=== PATIENT | male | born 1950 | race Caucasian/White ===

== ENCOUNTER 2017-11-11 07:27 | Inpatient (IN) | payer MEDICARE, OTHER ==
[~2017-11-11] VITALS: Ht 188 cm; Wt 113.4 kg
[2017-11-11] VITALS (9 sets, daily range): BP systolic 95–113; BP diastolic 54–70
--- NOTE | 2017-11-11 07:40 | NUR ---
A/OX4. LETHARGIC. SKINS PALE, WARM, MOIST. [id number] FROM HOME: SYNCOPE, LOWER GI BLEED, HYPOTENSION, NAUSEA. NEG. SOB.
--- NOTE | 2017-11-11 07:55 | NUR ---
SYSTOLIC BP AT 93
[2017-11-11] MEDS ORDERED: IV NS 0.9% 1,000 ML BAG IV ONE ×3 (08:00→10:00)
[2017-11-11 08:06] LABS: BASOPHILS % (AUTO) 0.1 % (0.0-2.0); EOSINOPHILS % (AUTO) 1.6 % (0.0-6.0); HEMATOCRIT 24 % (39-51); HEMOGLOBIN 7.7 g/dL (13.5-17.5); LYMPHOCYTES # (AUTO) 1.2 /CMM (0.8-4.8); LYMPHOCYTES % (AUTO) 15.8 % (20.0-44.0); MEAN CORPUSCULAR HEMOGLOBIN 29 PG (26.0-33.0); MEAN CORPUSCULAR HGB CONC 33 g/dl (31.0-36.0); MEAN CORPUSCULAR VOLUME 89 fL (80-96); MONOCYTES # (AUTO) 0.7 /CMM (0.1-1.30); MONOCYTES % (AUTO) 9.4 % (2.0-12.0); NEUTROPHILS # (AUTO) 5.6 /CMM (1.8-8.9); NEUTROPHILS % (AUTO) 73.1 % (43.0-81.0); PLATELET COUNT (AUTO) 211 /CMM (150-450); RDW COEFFICIENT OF VARIATION 15.4 (11.5-15.0); RED BLOOD CELL COUNT(AUTO) 2.67 MIL/uL (4.5-6.0); WHITE BLOOD COUNT (AUTO) 7.7 K/uL (4.3-11.0)
[2017-11-11 08:13] LABS: CALCIUM, SERUM 7.5 mg/dL (8.5-10.1); CARBON DIOXIDE 16 mmol/L (21-32); CHLORIDE 112 mmol/L (98-107); CREATININE 2.4 mg/dL (0.6-1.3); GLUCOSE 262 mg/dL (74-106); POTASSIUM 4.8 mmol/L (3.5-5.1); SODIUM SERUM 141 mmol/L (136-145); UREA NITROGEN, BLOOD 56 mg/dL (7-18)
[2017-11-11 08:19] LABS: ALANINE AMINOTRANSFERASE 52 U/L (12-78); ALBUMIN 2.3 g/dL (3.4-5.0); ALKALINE PHOSPHATASE 63 U/L (46-116); ASPARTATE AMINOTRANSFERASE 30 U/L (15-37); BILIRUBIN,DIRECT 0.1 mg/dL (0.0-0.2); BILIRUBIN,TOTAL 0.4 mg/dL (0.2-1.0); LIPASE 75 U/L (73-393); TOTAL PROTEIN, SERUM 4.6 g/dL (6.4-8.2)
[2017-11-11 08:20] LABS: INR 1.05 (0.87-1.13)
[2017-11-11 08:21] LABS: TROPONIN I < 0.017 ng/mL (0.00-0.056)
--- NOTE | 2017-11-11 08:28 | NUR ---
[facility] PAGED
[2017-11-11] MEDS ORDERED: CLOP75TA15 PO (08:37)
[2017-11-11] MEDS ORDERED: PRAV80TA21 PO (08:37)
[2017-11-11] MEDS ORDERED: PARI1CAP3 PO (08:37)
[2017-11-11] MEDS ORDERED: ROPI0.5T2 PO (08:37)
[2017-11-11] MEDS ORDERED: EZET10TA27 PO (08:37)
[2017-11-11] MEDS ORDERED: OMEG-15 PO (09:08)
[2017-11-11] MEDS ORDERED: MYCO500T PO (09:08)
[2017-11-11] MEDS ORDERED: GLUC15006 PO (09:08)
[2017-11-11] MEDS ORDERED: ERGO500014 PO (09:08)
[2017-11-11] MEDS ORDERED: ASPI-1169 PO (09:08)
[2017-11-11] MEDS ORDERED: MAGN500C16 PO (09:08)
[2017-11-11] MEDS ORDERED: CHOL100044 PO (09:08)
[2017-11-11] MEDS ORDERED: MULT-24 PO (09:08)
[2017-11-11] MEDS ORDERED: CALC-7 PO (09:08)
[2017-11-11] MEDS ORDERED: UBID100C13 PO (09:08)
--- NOTE | 2017-11-11 09:25 | NUR ---
PT SBP AT 67, PT GIVEN ADDITIONAL 1L NS PER VERBAL ORDERS BY MD ANGULO. SBP RAISED TO 97.
--- NOTE | 2017-11-11 09:34 | NUR ---
BP 98/64 AT THIS TIME WITH 1L BOLUS INFUSING.
--- NOTE | 2017-11-11 10:04 | NUR ---
PT TRANSFERRED TO [facility] VIA ACLS PROTOCOL
--- NOTE | 2017-11-11 10:15 | NUR ---
RN NOTE RECEIVED REPORT FROM ANDI IN ER. RECEIVED PATIENT 67 YEAR OLD MALE BBRA FROM HOME FOR SYNCOPE, LOWER GI BLEED, HYPOTENSION, AND NAUSEA. PATIENT IS ALERT AND ORIENT X4, HE IS ABLE TO MAKE THINGS KNOWN AND VERBALIZE NEEDS. REORIENTED PATIENT TO ROOM AND CALL BUTTON. BREATHING EVEN AND UNLABORED WITH NO DISTRESS NOTED. PATIENT ON ROOM AIR SATURATING WELL. ON PUBLIC RELATIONS COUNSELOR SINUS RHYTHM HR OF 67. PATIENT NOTED WITH UROSTOMY BAG WITH ADEQUATE FLOW OF URINE. NO HEMATURIA NOTED. LEFT FOREARM GAUGE 22 IV SITE INTACT AND PATENT SALINE LOCK, AND RIGHT FOREARM GAUGE 22 IV SITE INTACT AND PATENT SALINE LOCK. WOUND PICTURES TAKEN AND DOCUMENTED IN CHART. ALL SAFETY MEASURES DONE. BED LOW AND LOCKED POSITION. PLACED CALL LIGHT WITHIN REACH. WILL CONTINUE TO MONITOR CLOSELY.
[2017-11-11] MEDS: HYDROCODONE/APAP 5/325MG 1 EACH TABLET PO PRN ×3 (12:52→22:39)
[2017-11-11] MEDS ORDERED: ACETAMINOPHEN 325 MG TABLET PO PRN (13:00)
[2017-11-11] MEDS ORDERED: ONDANSETRON HCL/PF 4 MG/2 ML VIAL IVP PRN (13:00)
[2017-11-11] MEDS ORDERED: ZOLPIDEM TARTRATE 5 MG TABLET PO PRN (13:00)
[2017-11-11 14:34] LABS: BASOPHILS % (AUTO) 0.2 % (0.0-2.0); EOSINOPHILS % (AUTO) 0.2 % (0.0-6.0); LYMPHOCYTES # (AUTO) 0.5 /CMM (0.8-4.8); LYMPHOCYTES % (AUTO) 8.3 % (20.0-44.0); MEAN CORPUSCULAR HEMOGLOBIN 30 PG (26.0-33.0); MEAN CORPUSCULAR HGB CONC 33 g/dl (31.0-36.0); MEAN CORPUSCULAR VOLUME 88 fL (80-96); MONOCYTES # (AUTO) 0.4 /CMM (0.1-1.30); MONOCYTES % (AUTO) 6.8 % (2.0-12.0); NEUTROPHILS # (AUTO) 5.5 /CMM (1.8-8.9); NEUTROPHILS % (AUTO) 84.5 % (43.0-81.0); PLATELET COUNT (AUTO) 188 /CMM (150-450); RDW COEFFICIENT OF VARIATION 15.9 (11.5-15.0); RED BLOOD CELL COUNT(AUTO) 2.16 MIL/uL (4.5-6.0); WHITE BLOOD COUNT (AUTO) 6.5 K/uL (4.3-11.0)
[2017-11-11 14:40] LABS: HEMATOCRIT 19 % (39-51); HEMOGLOBIN 6.4 g/dL (13.5-17.5)
--- NOTE | 2017-11-11 14:50 | NUR ---
RN NOTE SUCRUSS FROM LABORATORY CALLED TO NOTIFY CRITICAL LAB OF HEMOGLOBIN OF 6.4. MD DR ANGULO NOTIFIED. WITH ORDER TO TRANSFUSE 1 UNIT PRBC
--- NOTE | 2017-11-11 14:55 | NUR ---
RN NOTE BLOOD CONSENT SIGNED FROM PATIENT'S SON ROMANA.
--- NOTE | 2017-11-11 15:15 | NUR ---
RN NOTE STARTED BLOOD TRANSFUSION, PATIENT IS IN STABLE CONDITION. NO DISTRESS NOTED. WILL CONTINUE TO MONITOR TRANSFUSION REACTIONS AND VITAL SIGNS.
--- NOTE | 2017-11-11 16:15 | NUR ---
RN NOTE PATIENT REMAINS STABLE WITH NO REACTIONS OR DISTRESS DURING TRANSFUSION, WILL CONTINUE TO MONITOR.
[2017-11-11] MEDS ORDERED: Medication Not On Formulary EA (Glucosamine Hcl 1,500 MG) PO SCH (17:00)
[2017-11-11] MEDS: CALCIUM CARB 250MG /VITAMIN D 1 UDTAB PO SCH (17:32)
[2017-11-11] MEDS: MYCOPHENOLATE MOFETIL 250 MG CAPSULE PO SCH (17:32)
[2017-11-11] MEDS: ATORVASTATIN 40 MG TABLET PO SCH (17:32)
--- NOTE | 2017-11-11 18:20 | NUR ---
RN NOTE TRANSFUSION COMPLETE. PATIENT REMAINS STABLE WITH NO DISTRESS NOTED. VITAL SIGN ARE STABLE.
--- NOTE | 2017-11-11 19:28 | NUR ---
RN NOTE PATIENT REMAINED STABLE THROUGHOUT SHIFT. NO ACUTE CHANGES OR DISTRESS NOTED. WILL ENDORSE TO NEXT SHIFT TO CONTINUE CONTINUITY OF CARE.
--- NOTE | 2017-11-11 19:30 | NUR ---
[facility] RN INITIAL NOTE PT IN BED, A/O X4 AND ABLE TO VERBALIZE NEEDS. ON ROOM AIR AND SATURATING WELL. IV CLEAN, PATENT AND FLUSHING WELL. UROSTOMY IN PLACE AND DRAINING BY GRAVITY. C/O BACK PAIN AND AWAITING X-RAY OF THE SPINE. CALL LIGHT WITHIN REACH. WILL CONTINUE TO MONITOR.
[2017-11-11 22:15] LABS: BASOPHILS % (AUTO) 0.3 % (0.0-2.0); EOSINOPHILS % (AUTO) 2.1 % (0.0-6.0); HEMATOCRIT 22 % (39-51); HEMOGLOBIN 7.2 g/dL (13.5-17.5); LYMPHOCYTES # (AUTO) 0.7 /CMM (0.8-4.8); LYMPHOCYTES % (AUTO) 10.1 % (20.0-44.0); MEAN CORPUSCULAR HEMOGLOBIN 29 PG (26.0-33.0); MEAN CORPUSCULAR HGB CONC 33 g/dl (31.0-36.0); MEAN CORPUSCULAR VOLUME 90 fL (80-96); MONOCYTES # (AUTO) 0.6 /CMM (0.1-1.30); MONOCYTES % (AUTO) 8.7 % (2.0-12.0); NEUTROPHILS # (AUTO) 5.5 /CMM (1.8-8.9); NEUTROPHILS % (AUTO) 78.8 % (43.0-81.0); PLATELET COUNT (AUTO) 184 /CMM (150-450); RDW COEFFICIENT OF VARIATION 15.5 (11.5-15.0); RED BLOOD CELL COUNT(AUTO) 2.47 MIL/uL (4.5-6.0)
[2017-11-11 22:17] LABS: OCCULT BLOOD STOOL POSITIVE (NEGATIVE)
[2017-11-12] VITALS (14 sets, daily range): BP systolic 93–120; BP diastolic 47–64
[2017-11-12] MEDS: HYDROCODONE/APAP 5/325MG 1 EACH TABLET PO PRN ×2 (06:26→17:37)
[2017-11-12 06:35] LABS: BASOPHILS % (AUTO) 0.3 % (0.0-2.0); EOSINOPHILS % (AUTO) 1.6 % (0.0-6.0); HEMATOCRIT 21 % (39-51); LYMPHOCYTES # (AUTO) 0.6 /CMM (0.8-4.8); MEAN CORPUSCULAR HEMOGLOBIN 30 PG (26.0-33.0); MEAN CORPUSCULAR HGB CONC 33 g/dl (31.0-36.0); MEAN CORPUSCULAR VOLUME 89 fL (80-96); MONOCYTES # (AUTO) 0.6 /CMM (0.1-1.30); MONOCYTES % (AUTO) 7.5 % (2.0-12.0); NEUTROPHILS # (AUTO) 6.1 /CMM (1.8-8.9); NEUTROPHILS % (AUTO) 82.6 % (43.0-81.0); PLATELET COUNT (AUTO) 184 /CMM (150-450); RDW COEFFICIENT OF VARIATION 15.6 (11.5-15.0); RED BLOOD CELL COUNT(AUTO) 2.33 MIL/uL (4.5-6.0); WHITE BLOOD COUNT (AUTO) 7.3 K/uL (4.3-11.0)
[2017-11-12 06:39] LABS: CALCIUM, SERUM 7.8 mg/dL (8.5-10.1); CREATININE 2.3 mg/dL (0.6-1.3); MAGNESIUM 1.9 mg/dL (1.8-2.4); PHOSPHORUS 2.8 mg/dL (2.5-4.9); POTASSIUM 5.1 mmol/L (3.5-5.1)
[2017-11-12 06:46] LABS: HEMOGLOBIN 6.9 g/dL (13.5-17.5)
--- NOTE | 2017-11-12 07:01 | NUR ---
[facility] RN CLOSING NOTE PT REMAINED STABLE DURING SHIFT. NO ACUTE DISTRESS NOTED. BACK PAIN MANAGED WITH PAIN MEDICATION AND SIPS OF WATER. REMAINS NPO EXCEPT MEDS. HAD SEVERAL BLOODY BOWEL MOVEMENTS. KEPT CLEAN AND DRY. GOOD ADINA CARE PROVIDED. ALL NEEDS ATTENDED TO PROMPTLY. RECEIVED CRITICAL VALUE FROM LAB: H/H-6.02/11. SPOKE WITH NUCLEAR DESIGN ENGINEER NORI LEIGH BULK DRIVER WITH ORDERS TO GIVE 1 UNIT AND RECHECK CBC 1 HOUR AFTER TRANSFUSION COMPLETE. WILL ENDORSE TO NEXT SHIFT FOR CONTINUITY OF CARE.
[2017-11-12] MEDS: MYCOPHENOLATE MOFETIL 250 MG CAPSULE PO SCH ×2 (08:31→17:07)
[2017-11-12] MEDS: EZETIMIBE 10 MG TABLET PO SCH (08:31)
[2017-11-12] MEDS: CALCIUM CARB 250MG /VITAMIN D 1 UDTAB PO SCH ×2 (08:31→17:07)
[2017-11-12] MEDS: ropiniROLE 0.5 MG TABLET PO SCH (08:31)
[2017-11-12] MEDS: CHOLECALCIFEROL 1,000 UNIT TABLET (VIT D3) PO SCH (08:31)
[2017-11-12] MEDS: MULTIVITAMINS,THERAGRAN 1 UDTAB TABLET PO SCH (08:32)
[2017-11-12] MEDS: MAGNESIUM OXIDE 400 MG TABLET PO SCH (08:32)
[2017-11-12 08:36] LABS: EOSINOPHILS % (MANUAL) 2 % (0-4); LYMPHOCYTES % (MANUAL) 5 % (16-48); MONOCYTES % (MANUAL) 5 % (0-11.0); NEUTROPHILS % (MANUAL) 88 (42-76)
[2017-11-12] MEDS ORDERED: Medication Not On Formulary EA (Ubidecarenone (Coq-10) 200 MG) PO SCH (09:00)
[2017-11-12] MEDS ORDERED: Medication Not On Formulary EA (Omega-3/Dha/Epa/Fish Oil (Fish Oil 1,400 Mg Softgel) 1 E PO SCH (09:00)
--- NOTE | 2017-11-12 11:28 | NUR ---
RN NOTE PT RECEIVED 1 UNIT PRBC, TOLERATED WELL, NO TRANSFUSION REACTION NOTED.
[2017-11-12] MEDS ORDERED: EPOETIN ALFA (20,000 UNIT) 20,000 UNIT/ML VIAL SQ ONE (12:30)
[2017-11-12 14:48] LABS: HEMOGLOBIN 7.3 g/dL (13.5-17.5)
[2017-11-12] MEDS: ATORVASTATIN 40 MG TABLET PO SCH (17:07)
[2017-11-12] MEDS ORDERED: Z GUARD REMEDY 2 OZ OINT TP PRN (17:30)
[2017-11-12 19:52] LABS: HEMOGLOBIN 6.9 g/dL (13.5-17.5)
[2017-11-12] MEDS ORDERED: IV NS 0.9% 1,000 ML BAG IV PRN (22:30)
[2017-11-13] VITALS (7 sets, daily range): BP systolic 99–125; BP diastolic 52–67
--- NOTE | 2017-11-13 00:14 | NUR ---
TEST DESK SUPERVISOR NOTE CRITICAL LAB HGB 6.9. SPOKE WITH IRRIGATION PUMP INSTALLER NORI LEIGH BRUSH AND BROOM CLIPPER WITH ORDERS TO GIVE 1 UNIT PRBC'S AND RECHECK CBC AFTER TRANSFUSION. SPOKE WITH DR REBOLLAR AND HE SAID OK TO TRANSFUSE 1 UNIT NOW AND START ON IVF NS @75MLS/HR. ORDERS NOTED AND CARRIED OUT. WILL CONTINUE TO MONITOR.
--- NOTE | 2017-11-13 01:50 | NUR ---
RN NOTES PATIENT COMPLAINING OF PAIN. ONLY PRN MED FOR PAIN IS [facility]; CURRENTLY NPO. NORI LEIGH, LEXX NOTIFIED WITH ORDER CARRIED OUT. PRIMARY RN, SARAHI NOTIFIED
[2017-11-13] MEDS ORDERED: MORPHINE SULFATE INJ 2 MG/ML DISP.SYRIN IV ONE (02:00)
[2017-11-13] MEDS ORDERED: MORPHINE SULFATE INJ 4 MG/ML DISP.SYRIN ONE (02:21)
[2017-11-13 06:27] LABS: BASOPHILS % (AUTO) 0.4 % (0.0-2.0); EOSINOPHILS % (AUTO) 3.2 % (0.0-6.0); HEMATOCRIT 24 % (39-51); LYMPHOCYTES # (AUTO) 0.6 /CMM (0.8-4.8); LYMPHOCYTES % (AUTO) 9.2 % (20.0-44.0); MEAN CORPUSCULAR HEMOGLOBIN 29 PG (26.0-33.0); MEAN CORPUSCULAR HGB CONC 33 g/dl (31.0-36.0); MEAN CORPUSCULAR VOLUME 87 fL (80-96); MONOCYTES # (AUTO) 0.6 /CMM (0.1-1.30); MONOCYTES % (AUTO) 8.5 % (2.0-12.0); NEUTROPHILS # (AUTO) 5.2 /CMM (1.8-8.9); NEUTROPHILS % (AUTO) 78.7 % (43.0-81.0); PLATELET COUNT (AUTO) 169 /CMM (150-450); RDW COEFFICIENT OF VARIATION 15.5 (11.5-15.0); RED BLOOD CELL COUNT(AUTO) 2.76 MIL/uL (4.5-6.0); WHITE BLOOD COUNT (AUTO) 6.6 K/uL (4.3-11.0)
[2017-11-13 06:59] LABS: CALCIUM, SERUM 8.5 mg/dL (8.5-10.1); CREATININE 2.2 mg/dL (0.6-1.3); POTASSIUM 4.8 mmol/L (3.5-5.1)
[2017-11-13] MEDS ORDERED: ANESTHESIA TRAY IN PYXIS 1 EA TRAY MC ONE (08:58)
[2017-11-13] MEDS: EZETIMIBE 10 MG TABLET PO SCH (10:22)
[2017-11-13] MEDS: MYCOPHENOLATE MOFETIL 250 MG CAPSULE PO SCH ×2 (10:22→17:16)
[2017-11-13] MEDS: CHOLECALCIFEROL 1,000 UNIT TABLET (VIT D3) PO SCH (10:22)
[2017-11-13] MEDS: ropiniROLE 0.5 MG TABLET PO SCH (10:22)
[2017-11-13] MEDS: MULTIVITAMINS,THERAGRAN 1 UDTAB TABLET PO SCH (10:23)
[2017-11-13] MEDS: CALCIUM CARB 250MG /VITAMIN D 1 UDTAB PO SCH ×2 (10:23→17:16)
[2017-11-13] MEDS: MAGNESIUM OXIDE 400 MG TABLET PO SCH (10:23)
[2017-11-13] MEDS: IV NS 0.9% 1,000 ML IV PRN (11:55)
[2017-11-13] MEDS: SUCRALFATE 1 G/10 ML UDC PO SCH ×3 (11:55→22:11)
[2017-11-13] MEDS: PARICALCITOL 1 MCG PO SCH (13:52)
[2017-11-13] MEDS: ATORVASTATIN 40 MG TABLET PO SCH (17:16)
[2017-11-13] MEDS: HYDROCODONE/APAP 5/325MG 1 EACH TABLET PO PRN ×2 (17:20→23:21)
--- NOTE | 2017-11-13 19:25 | NUR ---
RN OPENING NOTES RECEIVED PT IN BED, IN NO ACUTE DISTRESS, DENIES PAIN, NO SOB AND BREATHING EVEN AND UNLABORED. IVF INFUSING WELL ORDERED. ALL PATIENT'S NEEDS ATTENDED TO AT THIS TIME. PLACED CALL LIGHT WITHIN EASY REACH. WILL CONTINUE TO MONITOR PT.
--- NOTE | 2017-11-13 19:30 | NUR ---
RN NOTES PT ON TELE MONITORING: SINUS RHYTHM @ 70s.
[2017-11-13 21:19] LABS: HEMOGLOBIN 7.2 g/dL (13.5-17.5)
--- NOTE | 2017-11-13 23:10 | NUR ---
RN NOTES RELAYED PT'S HGA1C AND BLOOD GLUCOSE LEVELS TO LEXX LEIGH WITH NEW ORDER TO START PATIENT ON MILD INSULIN SLIDING SCALE ACHS. ALL ORDERS NOTED AND CARRIED OUT.
[2017-11-13] MEDS ORDERED: DEXTROSE 50%-WATER 50 ML DISP.SYRIN IV PRN (23:30)
[2017-11-14] VITALS (7 sets, daily range): BP systolic 94–134; BP diastolic 58–70
[2017-11-14] MEDS: IV NS 0.9% 1,000 ML IV PRN ×2 (01:26→15:17)
--- NOTE | 2017-11-14 03:56 | NUR ---
RN NOTES PT NOTED WITH NO EPISODE OF NAUSEA/VOMITING. RECEIVED ORDER TO D/C CURRENT DIET AND CHANGE TO PUREED DIET. WILL CONTINUE TO MONITOR PT.
--- NOTE | 2017-11-14 06:34 | NUR ---
VISOR INSTALLER CLOSING NOTES RESIDENT IN BED, ASLEEP BUT EASILY AROUSABLE. ALERT AND ORIENTED X 4, NO SOB, BREATHING EVEN AND UNLABORED, SLEPT WELL DURING THE SHIFT. PT NOTED WITH 1 EPISODE OF SMALL BM WITH FRESH BLOOD. PT DENIES ABDOMINAL PAIN, WITH NO DIZZINESS OR LIGHT HEADEDNESS. VERBALLY RESPONSIVE AND ABLE TO MAKE NEEDS KNOWN. ALL PATIENT'S NEEDS ATTENDED TO THROUGHOUT THE SHIFT. ON TELE MONITORING WITH ST @ 60s - 70S. IVF NS @75ML/HR, INFUSING WELL. PLACED CALL LIGHT WITHIN EASY REACH. BED IN LOW POSiTION AND LOCKED IN PLACE. WILL ENDORSE TO AM SHIFT NURSE FOR CONTINUITY OF CARE.
[2017-11-14] MEDS: SUCRALFATE 1 G/10 ML UDC PO SCH ×4 (06:41→21:06)
[2017-11-14 07:03] LABS: BASOPHILS % (AUTO) 0.5 % (0.0-2.0); EOSINOPHILS % (AUTO) 4.3 % (0.0-6.0); HEMATOCRIT 22 % (39-51); HEMOGLOBIN 7.3 g/dL (13.5-17.5); LYMPHOCYTES # (AUTO) 0.6 /CMM (0.8-4.8); LYMPHOCYTES % (AUTO) 10.8 % (20.0-44.0); MEAN CORPUSCULAR HEMOGLOBIN 29 PG (26.0-33.0); MEAN CORPUSCULAR HGB CONC 34 g/dl (31.0-36.0); MEAN CORPUSCULAR VOLUME 87 fL (80-96); MONOCYTES # (AUTO) 0.5 /CMM (0.1-1.30); MONOCYTES % (AUTO) 10.7 % (2.0-12.0); NEUTROPHILS # (AUTO) 3.8 /CMM (1.8-8.9); NEUTROPHILS % (AUTO) 73.7 % (43.0-81.0); PLATELET COUNT (AUTO) 181 /CMM (150-450); RDW COEFFICIENT OF VARIATION 15.2 (11.5-15.0); WHITE BLOOD COUNT (AUTO) 5.1 K/uL (4.3-11.0)
--- NOTE | 2017-11-14 07:12 | NUR ---
RN INITIAL NOTES: REC'D PT AWAKE ON BED, A/O X 4, NOT IN ANY DISTRESS. ON ROOM AIR, NO SOB. ON TELEMONITOR, SR W/ HR 78 BPM. HAS UROSTOMY INTACT, DRAINING W/ YELLOWISH URINE OUTPUT. HAS RFA G18, PATENT & INTACT W/ NO S/SX OF INFECTION/INFILTRATION NOTED, W/ NS X 75 CC/HR INFUSING WELL. PROVIDED COMFORT & SAFETY ENVIRONMENT. BED KEPT LOW & IN LOCKED POS. CALL LIGHT PLACED W/IN REACH. WILL CONTINUE TO MONITOR & ATTEND PT NEEDS.
[2017-11-14] MEDS: BLOOD SUGAR DIAGNOSTIC 1 EACH STRIP IN SCH ×4 (07:46→22:04)
[2017-11-14] MEDS: INSULIN REGULAR, HUMAN 100 UNIT/ML 3 ML VIAL SQ PRN ×4 (07:48→21:05)
[2017-11-14] MEDS: ropiniROLE 0.5 MG TABLET PO SCH (08:46)
[2017-11-14] MEDS: CALCIUM CARB 250MG /VITAMIN D 1 UDTAB PO SCH ×2 (08:46→17:08)
[2017-11-14] MEDS: EZETIMIBE 10 MG TABLET PO SCH (08:46)
[2017-11-14] MEDS: MAGNESIUM OXIDE 400 MG TABLET PO SCH (08:47)
[2017-11-14] MEDS: MULTIVITAMINS,THERAGRAN 1 UDTAB TABLET PO SCH (08:47)
[2017-11-14] MEDS: PARICALCITOL 1 MCG PO SCH (08:47)
[2017-11-14] MEDS: CHOLECALCIFEROL 1,000 UNIT TABLET (VIT D3) PO SCH (08:47)
[2017-11-14] MEDS: MYCOPHENOLATE MOFETIL 250 MG CAPSULE PO SCH ×2 (08:47→17:08)
[2017-11-14] MEDS: ATORVASTATIN 40 MG TABLET PO SCH (17:08)
--- NOTE | 2017-11-14 18:33 | NUR ---
RN INITIAL NOTES: NO ACUTE CHANGES NOTED W/IN SHIFT. PT TOLERATED ROOM AIR, NO SOB. ON TELEMONITOR, STILL SR. UROSTOMY KEPT PATENT & INTACT, DRAINING W/ YELLOWISH URINE OUTPUT. RFA G18, KEPT PATENT & INTACT W/ NO S/SX OF INFECTION/INFILTRATION NOTED, W/ NS X 75 CC/HR INFUSING WELL. BM STILL NOTED +BLOODY STOOL. KEPT WELL RESTED. NEEDS ATTENDED. BED KEPT LOW & IN LOCKED POS. CALL LIGHT PLACED W/IN REACH. WILL ENDORSE TO PM RN FOR KAL.
--- NOTE | 2017-11-14 19:30 | NUR ---
CAT HOOKER INITIAL NOTES, RECEIVED PT AWAKE ON BED, A/O X 4, BREATHING EVEN AND UNLABORED, S/S OR C/O SOB OR ANY DISTRESS, ON ROOM AIR, SR TELEMONITOR, ON 70'S BPM, UROSTOMY BAG NOTED INTACT, DRAINING YELLOW URINE, RFA G18, PATENT & INTACT NO S/S OF INFILTRATION NOTED, NS @ 75 CC/HR INFUSING WELL AND PATIENT TOLERATED WELL, . ALL NEEDS ATTENDED, BED LOCKED AND IN LOWEST POSITION, CALL LIGHT PLACED W/IN REACH. WILL CONTINUE TO MONITOR CLOSELY.
[2017-11-14 20:30] LABS: HEMOGLOBIN 7.2 g/dL (13.5-17.5)
[2017-11-15] VITALS: BP 116/64
[2017-11-15] MEDS: HYDROCODONE/APAP 5/325MG 1 EACH TABLET PO PRN (02:33)
[2017-11-15 04:00] VITALS: BP 108/64
[2017-11-15 04:35] VITALS: BP 108/64
[2017-11-15] MEDS: IV NS 0.9% 1,000 ML IV PRN (05:15)
[2017-11-15 06:11] LABS: BASOPHILS % (AUTO) 0.4 % (0.0-2.0); HEMATOCRIT 24 % (39-51); HEMOGLOBIN 7.9 g/dL (13.5-17.5); LYMPHOCYTES # (AUTO) 0.6 /CMM (0.8-4.8); LYMPHOCYTES % (AUTO) 10.5 % (20.0-44.0); MEAN CORPUSCULAR HEMOGLOBIN 29 PG (26.0-33.0); MEAN CORPUSCULAR HGB CONC 33 g/dl (31.0-36.0); MEAN CORPUSCULAR VOLUME 88 fL (80-96); MONOCYTES # (AUTO) 0.5 /CMM (0.1-1.30); MONOCYTES % (AUTO) 8.8 % (2.0-12.0); NEUTROPHILS # (AUTO) 4.5 /CMM (1.8-8.9); NEUTROPHILS % (AUTO) 77.3 % (43.0-81.0); PLATELET COUNT (AUTO) 209 /CMM (150-450); RDW COEFFICIENT OF VARIATION 15.3 (11.5-15.0); WHITE BLOOD COUNT (AUTO) 5.8 K/uL (4.3-11.0)
[2017-11-15 06:36] LABS: CALCIUM, SERUM 8.7 mg/dL (8.5-10.1); CREATININE 2.3 mg/dL (0.6-1.3); POTASSIUM 4.4 mmol/L (3.5-5.1)
--- NOTE | 2017-11-15 06:45 | NUR ---
REFRIGERATOR ROOM CLERK CLOSING NOTES, PATIENT SLEEPING AT THIS TIME, BREATHING EVEN AND UNLABORED, S/S OR C/O SOB OR ANY DISTRESS, ON ROOM AIR, SR TELEMONITOR HIGH 70S, UROSTOMY BAG NOTED INTACT, DRAINING YELLOW URINE, RFA G18, PATENT & INTACT NO S/S OF INFILTRATION NOTED, NS @ 75 CC/HR INFUSING WELL AND PATIENT TOLERATED WELL, NO SIGNIFICANT CHANGE IN CONDITION THROUGHOUT THE NIGHT, ALL NEEDS ATTENDED, BED LOCKED AND IN LOWEST POSITION, CALL LIGHT PLACED W/IN REACH.WILL ENDORSE CONTINUITY OF CARE TO ONCOMING NURSE.
--- NOTE | 2017-11-15 07:30 | NUR ---
OUTREACH ASSOCIATE INITIAL NOTES RECEIVED REPORT AND PT FROM PM NURSE, PT RESTING IN BED, NO ACUTE DISTRESS OR SOB, PT AWAKE, A&O X4 UZBEK SPEAKING, ON RA SAT ABOVE 94%, PT STATES 0/10 PAIN AT THIS TIME, ON TELE MON SR WITH HR 74, RT HAND IV SITE RUNNING NS @ 75 ML/HR NO INFILTRATION NOTED, UROSTOMY PRESENT DRAINING URINE, ALL SAFETY MEASURES INITIATED, BED LOW AND LOCKED, CALL LIGHT WITHIN REACH, SIDE RAILS X2, WILL CONTINUE TO MONITOR.
[2017-11-15 08:00] VITALS: BP 102/63
[2017-11-15] MEDS: BLOOD SUGAR DIAGNOSTIC 1 EACH STRIP IN SCH ×2 (08:35→11:54)
[2017-11-15] MEDS: CALCIUM CARB 250MG /VITAMIN D 1 UDTAB PO SCH (08:36)
[2017-11-15] MEDS: MULTIVITAMINS,THERAGRAN 1 UDTAB TABLET PO SCH (08:36)
[2017-11-15] MEDS: CHOLECALCIFEROL 1,000 UNIT TABLET (VIT D3) PO SCH (08:36)
[2017-11-15] MEDS: MAGNESIUM OXIDE 400 MG TABLET PO SCH (08:36)
[2017-11-15] MEDS: SUCRALFATE 1 G/10 ML UDC PO SCH ×2 (08:36→11:54)
[2017-11-15] MEDS: EZETIMIBE 10 MG TABLET PO SCH (08:36)
[2017-11-15] MEDS: PARICALCITOL 1 MCG PO SCH (08:37)
[2017-11-15] MEDS: MYCOPHENOLATE MOFETIL 250 MG CAPSULE PO SCH (08:37)
[2017-11-15] MEDS: ropiniROLE 0.5 MG TABLET PO SCH (08:37)
[2017-11-15 12:00] VITALS: BP 112/69
[2017-11-15] MEDS: INSULIN REGULAR, HUMAN 100 UNIT/ML 3 ML VIAL SQ PRN (12:02)
--- NOTE | 2017-11-15 14:02 | NUR ---
GRADUATE ADVISOR ENDING NOTES PTS DC PAPERWORK AND ORDER RECEIVED, SIGNED AND COMPLETED BY PT, ID BAND REMOVED, IV SITE REMOVED NO INFILTRATION OR REDNESS NOTED, EXIT CARE AND DC PAPERWORK DISCUSSED WITH PT AND GIVEN TO PT, NO PRESCRIPTION PROVIDED, PT WILL NEED TO FOLLOW UP WITH PCP, TELE BOX REMOVED, ALL DUE MEDS GIVEN, ALL NEEDS MEDS, PTS ESCORTED OUT ON WHEELCHAIR WITH SON, PTS PAPERWORK FAXED TO PTS PRIMARY NEPHRO MD AND PRIMARY MD.
[2017-11-21] MEDS ORDERED: ERGOCALCIFEROL (VITAMIN D 2) 50,000 UNIT CAPSULE PO SCH (09:00)
== END 2017-11-15 14:02 | disposition home or self-care (01) | DRG 383 ==
LOC: ER 07:29 → TELE-TD 09:58 → TELE1 11-12 09:34
PROVIDERS: ADMIT Family Medicine; ATTEND Family Medicine
PROC: 30233N1 Transfusion of Nonautologous Red Blood Cells into Peripheral Vein, Percutaneous Approach (ICD-10-PCS; principal; 2017-11-11)
PROC: 30233N1 Transfusion of Nonautologous Red Blood Cells into Peripheral Vein, Percutaneous Approach (ICD-10-PCS; 2017-11-11)
PROC: 0DJ08ZZ Inspection of Upper Intestinal Tract, Via Natural or Artificial Opening Endoscopic (ICD-10-PCS; 2017-11-13)
PROC: 0DJ08ZZ Inspection of Upper Intestinal Tract, Via Natural or Artificial Opening Endoscopic (ICD-10-PCS; 2017-11-13)
DX: K27.9 Peptic ulcer, site unspecified, unspecified as acute or chronic, without hemorrhage or perforation (principal); N17.0 Acute kidney failure with tubular necrosis; N18.6 End stage renal disease; E44.0 Moderate protein-calorie malnutrition; Z94.0 Kidney transplant status; I12.0 Hypertensive chronic kidney disease with stage 5 chronic kidney disease or end stage renal disease; E46 Unspecified protein-calorie malnutrition; I25.10 Atherosclerotic heart disease of native coronary artery without angina pectoris; Z98.84 Bariatric surgery status; Z95.5 Presence of coronary angioplasty implant and graft; Z95.1 Presence of aortocoronary bypass graft; Z88.1 Allergy status to other antibiotic agents; Z79.899 Other long term (current) drug therapy; Z91.041 Radiographic dye allergy status; Z79.01 Long term (current) use of anticoagulants; Z82.49 Family history of ischemic heart disease and other diseases of the circulatory system; Z79.82 Long term (current) use of aspirin; Z93.6 Other artificial openings of urinary tract status; E66.9 Obesity, unspecified; Z68.32 Body mass index [BMI] 32.0-32.9, adult; I35.2 Nonrheumatic aortic (valve) stenosis with insufficiency; E86.9 Volume depletion, unspecified; K20.9 Esophagitis, unspecified; E11.22 Type 2 diabetes mellitus with diabetic chronic kidney disease; D50.0 Iron deficiency anemia secondary to blood loss (chronic); K28.9 Gastrojejunal ulcer, unspecified as acute or chronic, without hemorrhage or perforation; E83.51 Hypocalcemia; E11.65 Type 2 diabetes mellitus with hyperglycemia
CPT/HCPCS: 36415; 71045-TC; 72100-TC; 80048-TC; 80061-TC; 80076-TC; 82272-TC; 82962-TC; 83690-TC; 83735-TC; 84100-TC; 84484-TC; 85025-TC; 85027-TC; 85730-TC; 86850-TC; 86921-TC; 87081-TC; 93307-TC; A4606; J0885; J1815; J2270; J3490; J7030; J7517; P9016-BL; Z7610